=== PATIENT | male | born 1970 | race Caucasian/White ===

== ENCOUNTER → 2020-06-14 | Outpatient (CLI) | payer MEDICARE | LOC: LAB 14:35 | PROVIDERS: ATTEND Surgery | DX: Z01.812 Encounter for preprocedural laboratory examination (principal); Z20.828 Contact with and (suspected) exposure to other viral communicable diseases; L98.9 Disorder of the skin and subcutaneous tissue, unspecified | CPT/HCPCS: U0003-CS ==

== ENCOUNTER 2020-06-18 07:46 | Day surgery (SDC) | payer MEDICARE ==
[~2020-06-18] VITALS: Ht 182.9 cm; Wt 83.5 kg
[~2020-06-18 07:46] MED LIST: HYDROmorphone 2 MG/ML VIAL IV PRN; IV RINGERS,LACTATED 1000ML 1,000 ML IV SCH; LIDOCAINE 1% PF 2 ML VIAL. ID PRN; MORPHINE SULFATE 2 MG/ML VIAL. IV PRN; ONDANSETRON PF 4 MG/2 ML VIAL. IV PRN; PROCHLORPERAZINE 10 MG/2 ML VIAL. IV PRN; fentaNYL PF VIAL 100 MCG/2 ML VIAL IV PRN
[2020-06-18] MEDS ORDERED: PROPOFOL 10 MG/ML (20ML) VIAL. IV ONE (08:01)
[2020-06-18] MEDS ORDERED: fentaNYL PF VIAL 100 MCG/2 ML VIAL ONE ×2 (08:02→09:57)
[2020-06-18] MEDS ORDERED: LIDOCAINE 2% PF 5 ML VIAL. ONE (08:02)
[2020-06-18] MEDS ORDERED: DEXAMETHASONE SOD PHOS 4 MG/ML VIAL ONE (08:02)
[2020-06-18] MEDS ORDERED: ONDANSETRON PF 4 MG/2 ML VIAL. ONE (08:02)
[2020-06-18] MEDS ORDERED: UBID30CA9 PO (08:15)
[2020-06-18] MEDS ORDERED: OMEG100021 PO (08:16)
[2020-06-18] MEDS ORDERED: ePHEDrine PF IN SALINE 50 MG/10 ML SYRINGE. IV ONE (08:59)
[2020-06-18] MEDS ORDERED: BUPIVACAINE-EPI 0.25%-1:200000 MPF 30 ML VIAL. INJ ONE (09:00)
--- NOTE | 2020-06-18 09:55 | PDOC4 ---
Operative Note Operative Note Operative Note: Preoperative Diagnosis: Left forearm skin lesion Postoperative Diagnosis: Same Procedure: Excision of left forearm skin lesion Surgeon: Tony Anesthesia: General EBL: 10 mL Specimen: Left forearm skin lesion, 6 x 3 cm specimen to pathology Drains: None Complications: None Indication: The patient is a 50-year-old male who was referred for excision of a left forearm skin lesion. The details and risks of surgery were discussed which include bleeding, infection, wound healing problems, pain, anesthetic risk, potential need for additional surgery procedure, potential need for additional excision. He understands this and would like to proceed. Description: The patient was taken the operating room and placed supine on the operating table. General anesthesia was performed. The left forearm was prepped with ChloraPrep and draped in a standard surgical manner. An elliptical incision was made around the skin lesion in a transverse orientation. Efforts were made to obtain a wide margin. Sharp and cautery dissection was used for full-thickness excision of the specimen. The excised specimen measured 6 x 3 cm and a stitch was used to jero the 12:00, superior location. The specimen was sent to pathology for evaluation. Hemostasis was achieved with cautery. The skin was reapproximated with interrupted 4-0 nylon sutures. A sterile dressing was then applied. The patient tolerated the procedure well and was sent to the recovery room in stable condition. At the end of the case all counts were correct. AAKASH NUNEZ MD Jun 18, 2020 09:54
--- NOTE | 2020-06-18 09:57 | DISCH ---
DISCHARGE INSTRUCTIONS Condition on Discharge Condition on Discharge: Stable Activity After Discharge Activity Instructions for Disc: Activity as tolerated Driving Instructions after Dis: Other, see below (no driving while taking pain meds) Diet after Discharge Diet after Discharge: Regular Wound Incision Care Wound/Incision Care: Other, see below (keep dressing clean and dry X 5 days, may then remove and shower) Follow-Up Follow up with: Dr Nunez in 1 week in office, call for appointment [phone] AAKASH NUNEZ MD Jun 18, 2020 09:57
[2020-06-18] MEDS: fentaNYL PF VIAL 100 MCG/2 ML VIAL IV PRN ×2 (10:02→10:17)
[2020-06-18] MEDS ORDERED: HYDR-3164 PO (10:13)
[2020-06-18 10:29] VITALS: BP 136/74
--- NOTE | 2020-06-20 18:19 | PATHOLOGY ---
[facility] Accession Number: [id number] . 01 Material submitted: . forearm - SUPER MARGIN STITCH AT 12:00, LEFT FOREARM LESION. Modifiers: left . 01 Clinical history: . FOREARM MASS . 02 Diagnosis: Skin and subcutaneous tissue, left forearm lesion excision: - Invasive well differentiated squamous cell carcinoma - inked margins of excision free of neoplasm. - Small incidental intradermal nevus. (JPM:angelica; 06/20/2020) QMS 06/20/2020 1233 Local . 02 Electronically signed: . Harman Hoffman MD, Pathologist NPI- [id number] . 01 Gross description: . The specimen is received in formalin labeled "Vega, Arnoldo, superior margin stitch at 12:00" and "L forearm" per requisition. Received is an oriented skin ellipse measuring 5.2 x 2.6 x 0.8 cm with a suture in the middle one side designating 12:00. Present on the surface is a crusted pink nodule measuring 1.9 x 1.8 cm that is 0.3 cm from the nearest peripheral edge (12:00). The margins are inked as follows: 9-12:00 yellow, 12-3:00 blue, and 3-6-9 o'clock black. It is serially sectioned and entirely submitted in A1-A9 with tips in A9. (SDY; 06/19/2020) SYU/SYU 06/19/2020 1112 Local . 02 Pathologist provided ICD-10: C44.629, D22.62 . 02 CPT . 381669 Specimen Comment: A courtesy copy of this report has been sent to [phone] Specimen Comment: Report sent to Performed at: 01 [facility] [place] [id number] [facility] [address], [place], [place] [id number] MD Mukul Clemente MD Phone: [phone] Performed at: 02 [facility] [address], [place] [id number] MD Harman Hoffman MD Phone: [phone]
== END 2020-06-18 11:12 | disposition home or self-care (01) ==
LOC: SURG 07:46
PROVIDERS: ATTEND Surgery
DX: C44.629 Squamous cell carcinoma of skin of left upper limb, including shoulder (principal); D22.62 Melanocytic nevi of left upper limb, including shoulder; Z88.8 Allergy status to other drugs, medicaments and biological substances; Z79.899 Other long term (current) drug therapy
CPT/HCPCS: 11603; A7015; J0690; J1100; J2405; J2704; J3010; J3490